=== PATIENT | female | born 1980 | race Caucasian/White ===

== ENCOUNTER 2016-07-25 15:13 | Emergency (ER) | payer BC ==
[~2016-07-25] VITALS: Ht 154.9 cm; Wt 51.3 kg
[2016-07-25] MEDS ORDERED: PREN1TAB81 PO (15:32)
[2016-07-25] MEDS ORDERED: ACETAMINOPHEN ES 500 MG TABLET PO ONE (16:15)
--- NOTE | 2016-07-25 16:16 | NUR ---
UA COLLECTED AND SENT
--- NOTE | 2016-07-25 16:16 | NUR ---
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
[2016-07-25] MEDS ORDERED: ACETAMINOPHEN ES 500 MG TABLET ONE (16:22)
[2016-07-25 16:51] LABS: *BILIRUBIN,URIN NEGATIVE (NEGATIVE); *BLOOD, URINE Trace-intact (NEGATIVE); *COLOR,URINE YELLOW (YELLOW); *KETONES,URINE TRACE (NEGATIVE); *PROTEIN,URINE NEGATIVE (NEGATIVE); *UROBILINOGEN,URINE 0.2 E.U./dl (NORMAL); LEUKOCYTE ESTERASE ,URINE NEGATIVE (NEGATIVE); NITRITE, URINE NEGATIVE (NEGATIVE); UGLUCOSE NEGATIVE (NEGATIVE)
[2016-07-25 16:58] LABS: BACTERIA,URINE MANY /HPF (NONE SEEN); RBC,URINE 0-3 /HPF (0-3); SQUAMOUS EPITHELIAL CELL,UR MANY /HPF (NONE SEEN)
[2016-07-25 16:59] LABS: *CLARITY,URINE SLIGHTLY HAZY (CLEAR)
== END 2016-07-25 17:23 | disposition home or self-care (01) ==
LOC: ER 15:15
DX: O26.891 Other specified pregnancy related conditions, first trimester (principal); Z3A.11 11 weeks gestation of pregnancy; R10.32 Left lower quadrant pain
CPT/HCPCS: 76856; 81001; 99285; A4663